=== PATIENT | male | born 1955 | race African-American/Black ===

== ENCOUNTER 2020-01-26 17:33 | Inpatient (IN) | payer OTHER, SELFPAY ==
[~2020-01-26 17:33] MED LIST: Iopamidol 370 76% 100 ML VIAL ONE
[2020-01-26] MEDS ORDERED: Ondansetron PF 4 MG/2 ML Vial ONE ×2 (18:09→23:12)
[2020-01-26 18:41] LABS: #Eosinphils 0.1 thou/uL (0.0-0.7); #Lymphocytes 1.8 thou/uL (1.20-3.40); #Monocytes 0.5 thou/uL (0.11-0.59); #Neutrophils 3.4 thou/uL (1.40-6.50); %Basophils 0.4 % (0.0-1.0); %Eosinophils 0.9 % (0.0-10.0); %Lymphocytes 31.6 % (21.0-51.0); %Monocytes 8.6 % (0.0-10.0); %Neutrophils 58.5 % (42.0-75.0); Hemoglobin 6.4 g/dL (14.0-18.0); Mean Corpuscular HGB CONC 31.2 g/dL (32.0-36.0); Mean Corpuscular Volume 77.2 fL (78.0-98.0); Mean Platelet Volume 9.3 fL (7.4-10.4); Platelet Count 219 thou/uL (130-400); RBC Distribution Width 20.3 % (11.5-14.5); Red Blood Cell (RBC) Count 2.66 mill/uL (4.70-6.10); White Blood Cell (WBC) Count 5.8 thou/uL (4.8-10.8)
[2020-01-26 18:46] LABS: ALT (SGPT) 18 U/L (8-55); AST (SGOT) 46 U/L (5-34); Albumin 4.1 g/dL (3.4-4.8); Alkaline Phosphatase 137 U/L (40-110); Anion Gap 17 mmol/L (10-20); BUN (Urea Nitrogen) 14 mg/dL (8.4-25.7); Bilirubin, Total 0.4 mg/dL (0.2-1.2); Calc. Creatinine Clearance 0 mL/min (70-130); Calcium 9.6 mg/dL (7.8-10.44); Carbon Dioxide 25 mmol/L (23-31); Chloride 101 mmol/L (98-107); Estimated GFR-MDRD Greater than 90; Globulin 3.6 g/dL (2.4-3.5); Glucose 110 mg/dL (80-115); Potassium 3.8 mmol/L (3.5-5.1); Protein, Total 7.7 g/dL (5.8-8.1); Sodium 139 mmol/L (136-145)
--- NOTE | 2020-01-26 20:05 | CT ---
EXAM: CT ABDOMEN AND PELVIS HISTORY: Low hemoglobin. Right hip pain radiating down the right leg. Nausea. COMPARISON: 04/23/2016 Procedure: Multiple contiguous axial images were obtained and a CT of the abdomen and pelvis with IV contrast. C oronal reformats were performed. FINDINGS: Lower Chest: Atelectasis in the left and right lower lobes suspected Vessels: Normal caliber aorta. No periaortic fat stranding Heart: Normal heart size. Small amount of anterior pericardial fluid. Abdomen: Portal vein:Patent Gallbladder: Contracted, likely due to a nonfasting state Liver: within normal limits. Pancreas: within normal limits. Spleen: within normal limits. Adrenals: within normal limits. Kidneys: Symmetric enhancement. Bilaterally no obstructive uropathy. Cyst in the left and right renal cortex are noted, measuring 2.5 and 1.6 cm respectively. Peritoneum: No ascites or free air, no fluid collection. Bowel: Limited evaluation due to the lack of oral contrast administration. No evidence of bowel obstr uction. Ileocecal junction is unremarkable. Normal caliber appendix. Scattered fecal material in a nondistended, nondilated colon. Diverticulosis, without evidence of diverticulitis. Mesentery and Retroperitoneum: No evidence of mesenteric lymphadenopathy. Enlarged aortocaval lymph n ode measures 1.4 x 0.5 cm. Abdominal Wall: within normal limits. Pelvis: Reproductive Organs: Reproductive organs are unremarkable. Pelvis: No free air, free fluid or mass. There is mild lymphadenopathy in the left or right hemipelvi s. Batterboard Setter right hemipelvic lymph node measures 2.1 x 1.9 cm. Bladder: within normal limits. Additional findings: There is mild induration of the right inguinal subcutaneous fat. Enlarged right inguinal lymph node measures 1.7 x 1.4 cm. Bones: There is demineralization with areas of patchy sclerosis involving the visualized spine, sacru m and bony pelvis. These findings have progressed since the previous examination. Possibility of multifocal osseous metastases/malignancy cannot be excluded. Correlate with patient's past medical hi story. Vacuum disc phenomenon at L4-L5. Bilateral pars defects at L4. Sacralization of L5 is redemonstrated. IMPRESSION: 1. Inflammatory changes involving the right groin with evidence of lymphadenopathy. Additional enlarg ed retroperitoneal and pelvic lymph nodes are noted. 2. Extensive sclerosis and lucency throughout the visualized osseous structures worrisome for progres sheron of metastases/malignancy compared to the previous CT. Correlate with patient's past medical history. Results study discussed with Estephania Richard 01/26/2020 at 8:03 PM Code CR Transcribed Date/Time: 01/26/2020 8:30 PM
--- NOTE | 2020-01-26 21:50 | PDOC.EVN ---
Event Note - Event Note Event Note: [id number] HP
[2020-01-26] MEDS ORDERED: Morphine 4 MG/ML VIAL ONE (22:11)
[2020-01-26 23:31] LABS: SARS-CoV-2 NAA Rapid Test Not Detected (NotDetected)
[2020-01-27 00:37] VITALS: BMI 24.0
[2020-01-27] MEDS ORDERED: Ondansetron ODT 4 MG TAB SL PRN (01:27)
[2020-01-27] MEDS ORDERED: Ondansetron PF 4 MG/2 ML Vial IVP PRN (01:27)
[2020-01-27] MEDS ORDERED: Acetaminophen 325 MG TAB PO PRN (01:27)
--- NOTE | 2020-01-27 01:43 | HP ---
CHIEF COMPLAINT: Abnormal labs. HISTORY OF PRESENT ILLNESS: Mr. Ye is a 64-year-old male with past medical history of metastatic prostate cancer, presents to the emergency room for evaluation of low hemoglobin. The patient reports that he was seen at [facility] today for right hip pain with radiation down to the leg. He reports they did labs and urinalysis and discharged home with pain medications, but called him later to tell him he needed to run to the hospital because of his blood counts were very low. He denies history of anemia. He feels weak, tired, short of breath with exertion. He does report history of vomiting and constipation, but denies noticing blood in his vomit or stool. He denies black tarry stool. He has been feeling nauseous at the current time and he believes it is from tramadol that he took earlier today. Workup in the emergency room, the patient was found to be anemic with hemoglobin of 6.4. MCV 77. Type and cross sent. Packed RBC transfusion ordered by ED. The patient is being admitted to hospital for further management. PAST MEDICAL HISTORY: Metastatic prostate cancer, stage IV. PAST SURGICAL HISTORY: None reported. SOCIAL HISTORY: Denies alcohol drinking. Denies drug use. Denies smoking. FAMILY HISTORY: Reviewed and noncontributory. HOME MEDICATIONS: Please see home medication reconciliation form for updated medications. ALLERGIES: NO KNOWN ALLERGIES. REVIEW OF SYSTEMS: Review of 14 systems negative except what is mentioned in history of present illness. PHYSICAL EXAMINATION: GENERAL: The patient is awake, alert, in mild distress. VITAL SIGNS: Blood pressure 137/81, pulse 85, respiratory rate is 20, temperature is 98.1, oxygen saturation 98% on room air. HEAD AND NECK: Normocephalic, atraumatic. Neck is supple. No JVD. CHEST: Fair bilateral air entry. HEART: S1, S2. Regular. ABDOMEN: Soft, nontender. Bowel sounds present. RECTAL: Done by ED. Please refer to ED note for details. NEUROLOGIC: Awake, alert, oriented x3. MUSCULOSKELETAL: Right hip tenderness. PSYCH: Unable to assess. EXTREMITIES: No clubbing or cyanosis. There is right hip tenderness. LABORATORY DATA: Hemoglobin 6.4, MCV 77, AST 46, alkaline phosphatase 137. CT abdomen and pelvis showed lymphadenopathy? Inflammatory extensive sclerosis and lucency throughout the visualized osseous structures worrisome for progression of metastasis/malignancy compared to prior CTs. ASSESSMENT: 1. Symptomatic anemia. 2. Metastatic prostate cancer. 3. Right hip pain. PLAN: 1. Admit. 2. Type and cross and transfuse packed RBCs. 3. Check urinalysis for occult blood. 4. Reconcile home medications. 5. Deep venous thrombosis prophylaxis as appropriate. 6. Expected length of stay, 1 midnight if patient is stable and further workup negative. Job ID: [id number]
[2020-01-27 05:40] LABS: Bilirubin Negative (Negative); Blood, Urine Negative (Negative); Clarity Clear (Clear); Glucose, Urine (Dipstick) Normal (Negative); Ketone, Urine Negative (Negative); Leukocyte Negative Leu/uL (Negative); Nitrite Negative (Negative); Protein, Urine (Dipstick) Negative (Neg-Trace); Urobilinogen Normal mg/dL (Less than 2); pH, Urine 6.5 (5.0-9.0)
[2020-01-27 06:29] LABS: #Eosinphils 0.1 thou/uL (0.0-0.7); #Lymphocytes 1.7 thou/uL (1.20-3.40); #Monocytes 0.5 thou/uL (0.11-0.59); #Neutrophils 2.9 thou/uL (1.40-6.50); %Basophils 0.4 % (0.0-1.0); %Eosinophils 1.1 % (0.0-10.0); %Lymphocytes 32.3 % (21.0-51.0); %Monocytes 9.8 % (0.0-10.0); %Neutrophils 56.4 % (42.0-75.0); Hemoglobin 7.7 g/dL (14.0-18.0); Mean Corpuscular HGB CONC 31.1 g/dL (32.0-36.0); Mean Corpuscular Hemoglobin 24.8 pg (27.0-31.0); Mean Corpuscular Volume 79.8 fL (78.0-98.0); Mean Platelet Volume 9.4 fL (7.4-10.4); Platelet Count 190 thou/uL (130-400); RBC Distribution Width 19.1 % (11.5-14.5); White Blood Cell (WBC) Count 5.2 thou/uL (4.8-10.8)
[2020-01-27 06:41] LABS: Anion Gap 14 mmol/L (10-20); BUN (Urea Nitrogen) 12 mg/dL (8.4-25.7); Calc. Creatinine Clearance 107 mL/min (70-130); Calcium 9.2 mg/dL (7.8-10.44); Carbon Dioxide 25 mmol/L (23-31); Chloride 100 mmol/L (98-107); Estimated GFR-MDRD Greater than 90; Glucose 102 mg/dL (80-115); Potassium 3.9 mmol/L (3.5-5.1); Sodium 135 mmol/L (136-145)
[2020-01-27] MEDS ORDERED: Morphine 4 MG/ML VIAL SLOW IVP PRN (12:03)
[2020-01-27] MEDS: Lidocaine 5% Patch TD SCH (12:32)
[2020-01-27] MEDS: HYDROcodone/Acetaminophen 5/325 mg Tablet PO PRN ×2 (12:32→18:55)
--- NOTE | 2020-01-27 14:13 | PDOC.PALCO ---
Palliative Care Consult - Consult Details Requesting Physician: Dr Bales Reason for Consult: symptom management - Pertinent HPI 64 year old male that resides in a private home setting. Reports history of metastatic prostate cancer. He was seen at [facility] 01/26/2020 for evaluation of right hip pain that radiates down the leg, no relieving factors. States he was discharged with pain medication, however was called at home secondary to altered CBC and advised to return to the emergency room for evaluation. Presented to [facility]. Denied blood in any emesis or note of dark or bloody stool. Admitted to Oncology for further evaluation and medical management. Utilizes cane for ambulation. Reports recent increase in shortness of breath with minimal activity. - Pertinent PMH Metastatic prostate cancer stage IV - Social History Smoking Status: Never smoker Smoking: no tobacco exposure Alcohol Use: none Drug Use History: none Living Situation: independent, with family/parents - Medications MAR Reviewed: Yes - Allergies Allergies/Adverse Reactions: Allergies Allergy/AdvReac Type Severity Reaction Status Date / Time No Known Drug Allergies Allergy Verified 01/27/20 01:47 - Subjective O2 via NC. States pain is a 6-7 out of 10. - ROS Constitutional: alert, malaise ENT: other (Denies difficulity swallowing, congestion) Respiratory: shortness of breath with extertion Cardiology: palpitations Gastrointestinal: other (Recent nausea related to new pain mediciaon, otherwise negative) Genitourinary: other (Negative for hematuria) Musculoskeletal: leg pain, other (right hip pain) Neurological: other (Denies confusion, dizziness, numbness) Skin: other (denies rash or puritis) Psychological: other (Denies mood changes or anxiety) - Objective Vital Signs: Vital Signs - Most Recent Temp Pulse Resp BP Pulse Ox 98.6 F 84 18 135/75 96 01/27/20 12:00 01/27/20 12:00 01/27/20 12:00 01/27/20 12:01/27/20 12:00 Palliative Performance Scale: 60 - Advance Directives Medical Power of Block Cuber: To complete - Physical Exam Constitutional: NAD HEENT: EOMI, sclera anicteric Respiratory: no wheezing, unlabored breathing Cardiovascular: RRR Gastrointestinal: continent, soft, positive bowel sounds Genitourinary: continent Musculoskeletal: no cyanosis, no clubbing Deviation from normal: Tenderness ot right hip Neurology: moves all 4 limbs Skin: no lesions, no rash Psychiatric: A&O x 3, flat affect - Problem List (1) Symptomatic anemia Code(s): D64.9 - ANEMIA, UNSPECIFIED Current Visit: Yes Status: Acute (2) Palliative care encounter Code(s): Z51.5 - ENCOUNTER FOR PALLIATIVE CARE Current Visit: Yes Status: Acute (3) Pain in right hip Code(s): M25.551 - PAIN IN RIGHT HIP Current Visit: Yes Status: Acute (4) Prostate cancer metastatic to bone Code(s): C61 - MALIGNANT NEOPLASM OF PROSTATE; C79.51 - SECONDARY MALIGNANT NEOPLASM OF BONE Current Visit: Yes Status: Acute - Plan/Recommendations Plan: Visited with Mr Ye, States currently his pain is improved, but still present. Denies recent BM. Will add dexamethasone, Teaching that it may take a dose or two to become effective in diminishing right hip pain Teaching to use PRN Morphine if initial dose of hydrocodone is not effective in mitigating right hip pain. Add Miralax for prevention of constipation [50] minutes spent on this encounter with >50% of the time in counseling and coordination of care. Thank you for this very appropriate consult.
--- NOTE | 2020-01-27 14:39 | PDOC.FMACP ---
Advance Care Planning - Problem (1) Symptomatic anemia Status: Acute Code(s): D64.9 - ANEMIA, UNSPECIFIED (2) Palliative care encounter Status: Acute Code(s): Z51.5 - ENCOUNTER FOR PALLIATIVE CARE (3) Pain in right hip Status: Acute Code(s): M25.551 - PAIN IN RIGHT HIP (4) Prostate cancer metastatic to bone Status: Acute Code(s): C61 - MALIGNANT NEOPLASM OF PROSTATE; C79.51 - SECONDARY MALIGNANT NEOPLASM OF BONE - Note Participants: patient, palliative care Summary: Introduced Advanced Care Planning. The diagnosis, prognosis and goals of care were discussed. Appropriate forms and documentation to accomplish the goals of care were discussed. All questions were answered. Mr Ye is agreeable to complete a MPOA, discussed Directive to Physician, he will review. Continue currently with all aggressive measures. The Palliative Care Team will assist with completion of any outstanding forms as identified. Time Spent (mins): 15
[2020-01-27] MEDS: Gabapentin 300 MG CAP PO SCH ×2 (15:20→20:47)
--- NOTE | 2020-01-27 17:01 | PDOC.HOSPP ---
- Subjective Subjective: Patient was seen examined at bedside. Patient complaining of hip pain. I have reviewed the CT scan. Patient apparently had histories of prostate cancer, follow-up with Dr. Omer, urology at outpatient for Lupron injection, until about May 2019, patient had lost his insurance coverage and had not been followed up since then. I have reached out to Dr. Omer. He did recommend check his PSA, and testosterone level. He also recommends oncology input and possible radiation therapy for palliative purposes. Consults have been placed. We will continue with conservative management, pain control. He will see patient on Thursday if patient is still in the hospital. - Objective Vital Signs & Weight: Vital Signs (12 hours) Temp Pulse Resp BP Pulse Ox 01/27/20 16:00 98.7 F 86 18 130/72 97 01/27/20 12:00 98.6 F 84 18 135/75 96 01/27/20 08:00 98.9 F 97 20 146/73 H 96 Weight Admit Weight 172 lb 2.896 oz Weight 172 lb 2.896 oz I&O: 01/26/20 01/27/20 01/28/20 06:59 06:59 06:59 Intake Total 336 Output Total 1550 Balance -1214 Result Diagrams: 01/27/20 06:00 01/27/20 06:00 Hospitalist ROS - Medication Medications: Active Medications Generic Name Dose Route Start Last Admin Trade Name Freq PRN Reason Stop Dose Admin Hydrocodone Bitart/Acetaminophen 1 tab 01/27/20 12:03 01/27/20 12:32 [place] 5/325 PO 1 tab Q4H PRN Administration Moderate to Severe Pain (6-10) Gabapentin 300 mg 01/27/20 15:00 01/27/20 15:20 Neurontin PO 300 mg TID LOUANN Administration Lidocaine 1 patch 01/27/20 13:00 01/27/20 12:32 Lidoderm 5% Patch TD 1 patch Q24HR LOUANN Administration Sodium Chloride 10 ml 01/27/20 09:00 01/27/20 09:34 Flush - Normal Saline IVF Not Given Q12HR LOUANN - Exam General Appearance: NAD, awake alert, ill appearing Eye: PERRL, anicteric sclera ENT: normocephalic atraumatic Neck: supple, symmetric, no JVD Heart: RRR, no murmur, no gallops, no rubs, normal peripheral pulses Respiratory: CTAB, no wheezes, no rales, no ronchi Gastrointestinal: soft, non-tender, non-distended Extremities: no cyanosis, no clubbing, no edema Skin: normal turgor, no lesions Neurological: cranial nerve grossly intact, no new deficit, facial droop, hemiplegia Musculoskeletal: normal tone, normal strength Psychiatric: normal affect, normal behavior, A&O x 3, oriented to time Hosp A/P - Plan Assessment and plan: #Pain due to malignancy including low back and hip #Metastatic prostate cancer #Symptomatic anemia due to chronic illness with status post blood transfusion 01/27/2020 I have reviewed his abdomen and pelvic CT scan, it appears to be progressions of his metastatic disease. We will consult medical oncology for further recommendation, patient may be benefit from palliative radiation therapy. Palliative care consult to help with symptomatic management as well as goals of care. I had a chance to reach out to Dr. Omer, his urologist. Recommend to check PSA level as well as testosterone level. Prognosis is poor given resistance to hormone therapy. He will see patient on Thursday if pt still in the hospital. If testosterone is significantly elevated, orchiectomy may be considered. Adjust pain regimen, monitor and adjust as needed. Labs in AM
[2020-01-27] MEDS ORDERED: Prevnar 13-Val Conj/PF 0.5 ML SYRINGE IM ONE (21:00)
--- NOTE | 2020-01-27 21:23 | CON ---
DATE OF CONSULTATION: REASON FOR CONSULTATION: Prostate cancer and anemia. Please note that the patient has a prior medical record different from his current one that is [id number]. HISTORY OF PRESENT ILLNESS: Mr. Ye is a 64-year-old gentleman, who was diagnosed with metastatic prostate cancer in April 2016. He presented in 10/2015 with pain in his right leg, radiated from his back down to his groin and down his leg. It started 3 months prior to this visit. A CT of the abdomen and pelvis done in 2015 found retroperitoneal lymphadenopathy, sclerotic lesions in the bones, spines, ribs. His PSA was 809 at diagnosis. He was treated by Dr. Omer with Lupron injections for the past several years. His last injection was in May of this year. He lost his job in September and lost his insurance as well. Since that time, he has been having worsening right leg pain. He presented to the emergency room at [facility] yesterday. He was noted to have a hemoglobin of 6. He had already been sent home, but was instructed to return to the nearest ER. He came here, where he was transfused 2 units of packed RBCs with improvement of his hemoglobin to 7.7. Repeat CT scan in the ER yesterday showed inflammatory changes involving the right groin with evidence of lymphadenopathy. There were additionally enlarged retroperitoneal and pelvic lymph nodes. He had extensive sclerosis and lucency throughout the bones. The patient states he has never had any chemotherapy. The only treatment he has had is Lupron injections. He had a negative stool guaiac in the ER. He denies any melena or hematochezia. He states he has lost 20 pounds since September due to poor appetite. No numbness or tingling in his lower extremities. PAST MEDICAL HISTORY: Metastatic prostate cancer diagnosed in 2015 and treated with Lupron. PAST SURGICAL HISTORY: None. ALLERGIES: NO KNOWN DRUG ALLERGIES. HOME MEDICATIONS: Advil. FAMILY HISTORY: Grandma had colon cancer and breast cancer. No known history of prostate cancer. SOCIAL HISTORY: A 40 plus pack-year history of smoking. He says he quit several years ago. Occasional beer. Past history of cocaine and marijuana use. REVIEW OF SYSTEMS: A 10-point review of systems is negative except for noted in HPI. PHYSICAL EXAMINATION: VITAL SIGNS: Temperature is 98.6, pulse is 84, respiratory rate 18, BP is 135/75. He is 96% on nasal cannula. GENERAL: A well-developed, well-nourished male, no acute distress. HEENT: Normocephalic, atraumatic. Pupils are equal and reactive to light. NECK: Supple. CV: Regular rate and rhythm. LUNGS: Clear. ABDOMEN: Soft and nontender. Bowel sounds are positive. EXTREMITIES: No clubbing or cyanosis. SKIN: No rash. LYMPH: He has a 2 cm right inguinal lymphadenopathy. No other lymphadenopathy palpated. NEUROLOGICAL: Nonfocal. PERTINENT LABORATORY DATA AND X-RAYS: Current WBCs are 5.4, hemoglobin 7.7, hematocrit 24.7, platelet count 190,000. He has 56% neutrophils, 32% lymphocytes. Sodium 135, potassium 3.9, chloride 100, CO2 is 25, BUN is 12, creatinine 0.78, calcium 9.2, bilirubin is 0.4, AST is 46, ALT is 18, alkaline phosphatase is 137. Serum total protein is 7.7, albumin 4.1, globulin 3.6. Urine is negative. COVID-19 test is negative. ASSESSMENT: 1. Metastatic prostate cancer with likely progression. 2. Severe anemia. DISCUSSION: The patient has not had a Lupron injection since May 2019. Based on his lymphadenopathy and sclerosis in his bones, his prostate cancer has likely progressed. I will check a PSA. His anemia may be from bone marrow suppression due to prostate cancer. However, GI bleed should be ruled out as well. We will get a bone scan to determine extent of disease. He would be a candidate for Taxotere chemotherapy or oral Zytiga or Xtandi. He unfortunately lost his insurance in September and will need financial assistance. We will discuss with director case and our egg caser at our clinic. Thank you for the consult. We will follow along with his hospitalization. Job ID: [id number]
[2020-01-28] MEDS: Lidocaine Patch Removal 1 EACH TOP SCH (00:39)
[2020-01-28] MEDS: HYDROcodone/Acetaminophen 5/325 mg Tablet PO PRN ×3 (02:59→20:06)
[2020-01-28 04:41] LABS: Reticulocyte Count 1.5 % (0.5-1.5)
[2020-01-28 04:47] LABS: #Lymphocytes 1.4 thou/uL (1.20-3.40); #Monocytes 0.6 thou/uL (0.11-0.59); %Basophils 0.8 % (0.0-1.0); %Lymphocytes 27.8 % (21.0-51.0); %Monocytes 11.3 % (0.0-10.0); %Neutrophils 59.1 % (42.0-75.0); Hemoglobin 7.7 g/dL (14.0-18.0); Mean Corpuscular HGB CONC 30.7 g/dL (32.0-36.0); Mean Corpuscular Hemoglobin 24.3 pg (27.0-31.0); Mean Corpuscular Volume 79.1 fL (78.0-98.0); Mean Platelet Volume 9.9 fL (7.4-10.4); Platelet Count 206 thou/uL (130-400); RBC Distribution Width 19.5 % (11.5-14.5); Red Blood Cell (RBC) Count 3.16 mill/uL (4.70-6.10); White Blood Cell (WBC) Count 5.1 thou/uL (4.8-10.8)
[2020-01-28 05:07] LABS: Albumin (w/Testosterone Panel) 3.5 g/dL
[2020-01-28 05:13] LABS: Anion Gap 15 mmol/L (10-20); BUN (Urea Nitrogen) 15 mg/dL (8.4-25.7); Calc. Creatinine Clearance 107 mL/min (70-130); Calcium 8.7 mg/dL (7.8-10.44); Carbon Dioxide 23 mmol/L (23-31); Chloride 100 mmol/L (98-107); Estimated GFR-MDRD Greater than 90; Glucose 101 mg/dL (80-115); Iron 26 ug/dL (65-175); Iron Binding Capacity, Total 179 mcg/dL (261-462); Potassium 3.9 mmol/L (3.5-5.1); Sodium 134 mmol/L (136-145)
[2020-01-28 05:53] LABS: Sex Hormone Binding Globulin 54.7 nmol/L (11-78); Testosterone, Free 3.6 pg/mL (47-244); Testosterone, Total 26.6 ng/dL (221-716)
[2020-01-28 05:58] LABS: PSA-Asymptomatic (SCREENING) 96.97 ng/mL (0-4.0)
[2020-01-28 06:29] LABS: Ferritin 6749.17 ng/mL (22-322)
[2020-01-28] MEDS: Dexamethasone 4 MG TAB PO SCH (08:19)
[2020-01-28] MEDS: Gabapentin 300 MG CAP PO SCH ×3 (08:20→20:06)
[2020-01-28] MEDS: Polyethylene Glycol 3350 17 GM Packet PO SCH (08:22)
[2020-01-28] MEDS ORDERED: Prevnar 13-Val Conj/PF 0.5 ML SYRINGE IM ONE (09:00)
[2020-01-28] MEDS: Cyanocobalamin (Vitamin B-12) 1,000 MCG TAB PO SCH (10:05)
--- NOTE | 2020-01-28 12:54 | PDOC.MOPN ---
Interval History: pain controlled with meds. Bone scan today. - Vital Signs Vital Signs: Vital Signs (12 hours) Temp Pulse Resp BP BP BP Pulse Ox 01/28/20 11:56 98.8 F 90 16 138/77 91 L 01/28/20 08:06 99.2 F 105 H 18 155/83 H 95 01/28/20 08:00 99.2 F 105 H 18 155/83 H 95 01/28/20 03:00 100.5 F H 96 20 132/66 96 Weight Admit Weight 172 lb 2.896 oz Weight 172 lb 2.896 oz - Physical Exam General: Alert, Oriented x3, No acute distress HEENT: Atraumatic, PERRLA, EOMI, Mucous membr. moist/pink Lungs: Clear to auscultation, Normal air movement Cardiovascular: Regular rate, Normal S1, Normal S2, No murmurs, Gallops, Rubs Abdomen: Normal bowel sounds, Soft, No tenderness, No hepatospenomegaly, No masses Extremities: Other (right leg pain, rt groin lymphadenopathy) Neurological: Normal speech - Labs Result Diagrams: 01/28/20 03:47 01/28/20 03:47 Lab results: Laboratory Results - last 24 hr 01/28/20 03:47: Testosterone Level 26.6 L, Free Testosterone 3.6 L, Calc Bioavail Testoster 7.0, Sex Hormone Bind Glob 54.7 01/28/20 03:47: Retic Count 1.5, Immature Retic Fraction 0.460 H 01/28/20 03:47: WBC 5.1, RBC 3.16 L, Hgb 7.7 L, Hct 25.0 L, MCV 79.1, MCH 24.3 L , MCHC 30.7 L, RDW 19.5 H, Plt Count 206, MPV 9.9, Neutrophils % 59.1, Lymphocytes % 27.8, Monocytes % 11.3 H, Eosinophils % 1.0, Basophils % 0.8, Neutrophils # 3.0, Lymphocytes # 1.4, Monocytes # 0.6 H, Eosinophils # 0.0, Basophils # 0.0 01/28/20 03:47: Folate 6.70 L 01/28/20 03:47: Ferritin 6749.17 H, Prostate Specific Ag 96.97 H, Vitamin B12 267 01/28/20 03:47: Lactate Dehydrogenase 1384 H 01/28/20 03:47: Sodium 134 L, Potassium 3.9, Chloride 100, Carbon Dioxide 23, Anion Gap 15, BUN 15, Creatinine 0.78, Estimated GFR (MDRD) Greater than 90, Glucose 101, Calcium 8.7, Iron 26 L, TIBC 179 L Status: lab reviewed by me A/P - Problem (1) Prostate cancer metastatic to bone Current Visit: Yes Code(s): C61 - MALIGNANT NEOPLASM OF PROSTATE; C79.51 - SECONDARY MALIGNANT NEOPLASM OF BONE Status: Acute (2) Symptomatic anemia Current Visit: Yes Code(s): D64.9 - ANEMIA, UNSPECIFIED Status: Acute - Plan Plan: 1. NM bone scan today 2, PSA 96.97 3. ok to al home after scan 4. follow-up clinic to discuss treatment options, we will call with appt
--- NOTE | 2020-01-28 14:09 | NM ---
WHOLE BODY BONE SCAN: 01/28/20 HISTORY: Prostate cancer, stage IV. RADIOPHARMACEUTICAL: 28.3 millicuries technetium 99m - MDP injected intravenously. COMPARISON: None. CORRELATION: CT abdomen and pelvis of 01/26/20. FINDINGS: There is increased tracer localization in the axial and proximal appendicular skeleton consistent wit h extensive metastatic disease. Tracer excretions of both kidneys are within normal limits. There is asymmetrically increased uptake in the right iliac bone, superior pubic ramus and acetabulum and incr eased uptake in the left supra-acetabular region. Increased uptake in the shoulders is consistent with degenerative change. Tracer excretion to the kid neys is within normal limits. IMPRESSION: Widespread osseous metastatic disease. POS: OFF
[2020-01-28] MEDS: Lidocaine 5% Patch TD SCH (14:29)
[2020-01-29] MEDS: Lidocaine Patch Removal 1 EACH TOP SCH (00:04)
[2020-01-29] MEDS: HYDROcodone/Acetaminophen 5/325 mg Tablet PO PRN ×3 (04:07→20:44)
[2020-01-29] MEDS: Acetaminophen 325 MG TAB PO PRN (04:07)
[2020-01-29 06:08] LABS: Bacteria/HPF None Seen HPF (None Seen); Bilirubin Negative (Negative); Blood, Urine Trace (Negative); Clarity Clear (Clear); Glucose, Urine (Dipstick) Normal (Negative); Ketone, Urine Negative (Negative); Leukocyte Negative Leu/uL (Negative); Mucous/LPF 2+ LPF (<2+); Nitrite Negative (Negative); Protein, Urine (Dipstick) 30 mg/dL (Neg-Trace); RBC/HPF 0-3 HPF (0-3); Specific Gravity, Urine 1.028 (1.002-1.036); Squamous Epithelial None Seen HPF (0-3); Urobilinogen Normal mg/dL (Less than 2); WBC/HPF 0-3 HPF (0-3); pH, Urine 5.5 (5.0-9.0)
--- NOTE | 2020-01-29 07:23 | PDOC.HOSPP ---
- Subjective Encounter Date: 01/28/20 Encounter Time: 09:00 Subjective: pt up in bed complains of pain to his right hip area. - Objective Vital Signs & Weight: Vital Signs (12 hours) Temp Pulse Resp BP Pulse Ox 01/29/20 05:10 100.4 F H 01/29/20 04:00 102.2 F H 01/28/20 23:52 99.6 F 92 18 141/75 H 93 L 01/28/20 20:10 94 L 01/28/20 20:00 98.5 F 97 18 152/76 H 94 L Weight Admit Weight 172 lb 2.896 oz Weight 172 lb 2.896 oz I&O: 01/28/20 01/29/20 01/30/20 06:59 06:59 06:59 Intake Total 1000 480 Output Total 400 Balance 1000 80 Result Diagrams: 01/28/20 03:47 01/28/20 03:47 Hospitalist ROS - Review of Systems Cardiovascular: denies: chest pain, palpitations, orthopnea, paroxysmal noc. dyspnea, edema, light headedness, other Gastrointestinal: denies: nausea, vomiting, abdominal pain, diarrhea, constipation, melena, hematochezia, other Musculoskeletal: reports: other - Medication Medications: Active Medications Generic Name Dose Route Start Last Admin Trade Name Freq PRN Reason Stop Dose Admin Acetaminophen 650 mg 01/26/20 21:09 01/29/20 04:07 Tylenol PO 650 mg Q4H PRN Administration Headache/Fever/Mild Pain (1-3) Hydrocodone Bitart/Acetaminophen 1 tab 01/27/20 12:03 01/29/20 04:07 [place] 5/325 PO 1 tab Q4H PRN Administration Moderate to Severe Pain (6-10) Cyanocobalamin 1,000 mcg 01/28/20 09:00 01/28/20 10:05 Vitamin B-12 PO 1,000 mcg DAILY LOUANN Administration Dexamethasone 4 mg 01/28/20 08:00 01/28/20 08:19 Decadron PO 4 mg QAM-WM LOUANN Administration Gabapentin 300 mg 01/27/20 15:00 01/28/20 20:06 Neurontin PO 300 mg TID LOUANN Administration Lidocaine 1 patch 01/27/20 13:00 01/28/20 14:29 Lidoderm 5% Patch TD 1 patch Q24HR LOUANN Administration Miscellaneous Medication 1 each 01/28/20 01:00 01/29/20 00:04 Lidocaine Patch Removal TOP Not Given 0100 [facility] Morphine Sulfate 4 mg 01/27/20 12:03 01/28/20 10:10 Morphine SLOW IVP 4 mg Q4H PRN Administration Moderate to Severe Pain (6-10) Polyethylene Glycol 17 gm 01/28/20 09:00 01/28/20 08:22 Miralax PO 17 gm DAILY LOUANN Administration Sodium Chloride 10 ml 01/27/20 09:00 01/28/20 20:06 Flush - Normal Saline IVF 10 ml Q12HR LOUANN Administration - Exam Heart: negative: RRR, no murmur, no gallops, no rubs, normal peripheral pulses, irregular, diminshed peripheral pulses, murmur present, II/IV, III/IV Respiratory: negative: CTAB, no wheezes, no rales, no ronchi, normal chest expansion, no tachypnea, normal percussion, rales, rhonchi, tachypneic, wheezes Gastrointestinal: negative: soft, non-tender, non-distended, normal bowel sounds , no palpable masses, no hepatomegaly, no splenomegaly, no bruit, no guarding, no rigidity, tender to palpation, distended, diminished bowl sounds, voluntary guarding Extremities: negative: no cyanosis, no clubbing, no edema, 1+ LE edema, 2+ LE edema, clubbing Musculoskeletal - other findings: weakness to right lower ext Hosp A/P - Plan #Pain due to malignancy including low back and hip #Metastatic prostate cancer #Symptomatic anemia due to chronic illness with status post blood transfusion 01/27/2020 I have reviewed his abdomen and pelvic CT scan, it appears to be progressions of his metastatic disease. We will consult medical oncology for further recommendation, patient may be benefit from palliative radiation therapy. Palliative care consult to help with symptomatic management as well as goals of care. I had a chance to reach out to Dr. Omer, his urologist. Recommend to check PSA level as well as testosterone level. Prognosis is poor given resistance to hormone therapy. He will see patient on Thursday if pt still in the hospital. If testosterone is significantly elevated, orchiectomy may be considered. Adjust pain regimen, monitor and adjust as needed. Labs in AM 01/27 pt still having significant amount of pain to his right hip. He is getting morphine. Bone scan to be done. will watch pt over for 24hr then discharge if stable and no iv pain meds given.
[2020-01-29] MEDS: Ferrous Sulfate 325 MG TAB PO SCH ×3 (08:02→16:50)
[2020-01-29] MEDS: Gabapentin 300 MG CAP PO SCH ×3 (08:02→20:39)
[2020-01-29] MEDS: Dexamethasone 4 MG TAB PO SCH (08:03)
[2020-01-29] MEDS: Docusate 100 MG CAP PO SCH ×2 (08:03→20:39)
[2020-01-29] MEDS: Cyanocobalamin (Vitamin B-12) 1,000 MCG TAB PO SCH (08:06)
[2020-01-29] MEDS: Polyethylene Glycol 3350 17 GM Packet PO SCH (08:07)
[2020-01-29 08:19] LABS: ALT (SGPT) 18 U/L (8-55); AST (SGOT) 39 U/L (5-34); Albumin 3.4 g/dL (3.4-4.8); Alkaline Phosphatase 135 U/L (40-110); Anion Gap 16 mmol/L (10-20); BUN (Urea Nitrogen) 17 mg/dL (8.4-25.7); Bilirubin, Total 0.4 mg/dL (0.2-1.2); Calc. Creatinine Clearance 110 mL/min (70-130); Calcium 8.8 mg/dL (7.8-10.44); Carbon Dioxide 24 mmol/L (23-31); Chloride 102 mmol/L (98-107); Estimated GFR-MDRD Greater than 90; Globulin 3.3 g/dL (2.4-3.5); Glucose 108 mg/dL (80-115); Potassium 3.8 mmol/L (3.5-5.1); Protein, Total 6.7 g/dL (5.8-8.1); Sodium 138 mmol/L (136-145)
[2020-01-29 08:24] LABS: Hemoglobin 7.7 g/dL (14.0-18.0); Mean Corpuscular HGB CONC 29.4 g/dL (32.0-36.0); Mean Corpuscular Hemoglobin 23.6 pg (27.0-31.0); Mean Corpuscular Volume 80.3 fL (78.0-98.0); Mean Platelet Volume 9.6 fL (7.4-10.4); Platelet Count 193 thou/uL (130-400); RBC Distribution Width 19.8 % (11.5-14.5); Red Blood Cell (RBC) Count 3.25 mill/uL (4.70-6.10); White Blood Cell (WBC) Count 5.5 thou/uL (4.8-10.8)
[2020-01-29 09:50] LABS: #Lymphocytes 1.6 thou/uL (1.20-3.40); #Monocytes 0.7 thou/uL (0.11-0.59); #Neutrophils 3.2 thou/uL (1.40-6.50); %Basophils 0.3 % (0.0-1.0); %Eosinophils 0.5 % (0.0-10.0); %Lymphocytes 28.8 % (21.0-51.0); %Monocytes 11.9 % (0.0-10.0); %Neutrophils 58.6 % (42.0-75.0); Anisocytosis SLIGHT = 6-15 cells (100X) (0-5/hpf); Hypochromia MODERATE=16-30 cells (100X) (0-5/hpf); MDiff Complete? YES; Microcytosis SLIGHT = 6-15 cells (100X) (0-5/hpf); Platelet Morphology Comment Appears Adequate; Polychromasia SLIGHT = 2-3 cells (100X) (0-2/hpf); Schistocytes SLIGHT = 2-5 cells (100X) (0-1/hpf); Target Cells SLIGHT = 2-5 cells (100X) (0-1/hpf); Tear Drops SLIGHT = 2-5 cells (100X) (0-1/hpf)
--- NOTE | 2020-01-29 11:09 | RAD ---
PORTABLE CHEST 1 VIEW: DATE: 01/29/2020. TIME: 4:35 AM. HISTORY: Fever. COMPARISON: 04/23/2016. FINDINGS: The heart size is normal. The aorta is tortuous with evidence of old granulomatous disease. No loba r consolidation, pneumothoraces, or large effusions are identified. POS: OFF
[2020-01-29] MEDS ORDERED: Piperacillin/Tazobactam 3.375 GM VIAL ONE (12:27)
[2020-01-29] MEDS: Piperacillin/Tazobactam 3.375 GM in Sodium Chloride 0.9% 100 ML IVPB SCH ×2 (13:17→17:28)
[2020-01-29] MEDS: Lidocaine 5% Patch TD SCH (13:19)
--- NOTE | 2020-01-29 15:25 | PDOC.HOSPP ---
- Subjective Encounter Date: 01/29/20 Encounter Time: 12:30 Subjective: pt up in bed complains of pain to his right groin. - Objective Vital Signs & Weight: Vital Signs (12 hours) Temp Pulse Resp BP Pulse Ox 01/29/20 08:00 100.1 F H 99 18 156/77 H 97 01/29/20 05:10 100.4 F H 01/29/20 04:00 102.2 F H Weight Admit Weight 172 lb 2.896 oz Weight 172 lb 2.896 oz I&O: 01/28/20 01/29/20 01/30/20 06:59 06:59 06:59 Intake Total 1000 480 Output Total 400 Balance 1000 80 Result Diagrams: 01/29/20 07:43 01/29/20 07:43 Hospitalist ROS - Review of Systems Cardiovascular: denies: chest pain, palpitations, orthopnea, paroxysmal noc. dyspnea, edema, light headedness, other Gastrointestinal: denies: nausea, vomiting, abdominal pain, diarrhea, constipation, melena, hematochezia, other Genitourinary: denies: dysuria, frequency, incontinence, hematuria, retention, other - Medication Medications: Active Medications Generic Name Dose Route Start Last Admin Trade Name Freq PRN Reason Stop Dose Admin Acetaminophen 650 mg 01/26/20 21:09 01/29/20 04:07 Tylenol PO 650 mg Q4H PRN Administration Headache/Fever/Mild Pain (1-3) Hydrocodone Bitart/Acetaminophen 1 tab 01/27/20 12:03 01/29/20 08:03 [place] 5/325 PO 1 tab Q4H PRN Administration Moderate to Severe Pain (6-10) Cyanocobalamin 1,000 mcg 01/28/20 09:00 01/29/20 08:06 Vitamin B-12 PO 1,000 mcg DAILY LOUANN Administration Dexamethasone 4 mg 01/28/20 08:00 01/29/20 08:03 Decadron PO 4 mg QAM-WM LOUANN Administration Docusate Sodium 100 mg 01/29/20 09:00 01/29/20 08:03 Colace PO 100 mg BID LOUANN Administration Ferrous Sulfate 325 mg 01/29/20 08:00 01/29/20 08:05 Feosol PO 325 mg BID-WM LOUANN Administration Gabapentin 300 mg 01/27/20 15:00 01/29/20 14:38 Neurontin PO 300 mg TID LOUANN Administration Piperacillin Sod/Tazobactam 100 mls @ 200 mls/hr 01/29/20 12:00 01/29/20 13: 17 Sod 3.375 gm/ Sodium Chloride IVPB 100 mls Q6HR LOUANN Administration Lidocaine 1 patch 01/27/20 13:00 01/29/20 13:19 Lidoderm 5% Patch TD 1 patch Q24HR LOUANN Administration Miscellaneous Medication 1 each 01/28/20 01:00 01/29/20 00:04 Lidocaine Patch Removal TOP Not Given 0100 [facility] Morphine Sulfate 4 mg 01/27/20 12:03 01/28/20 10:10 Morphine SLOW IVP 4 mg Q4H PRN Administration Moderate to Severe Pain (6-10) Polyethylene Glycol 17 gm 01/28/20 09:00 01/29/20 08:07 Miralax PO 17 gm DAILY LOUANN Administration Sodium Chloride 10 ml 01/27/20 09:00 01/29/20 08:07 Flush - Normal Saline IVF 10 ml Q12HR LOUANN Administration - Exam Neck: negative: supple, symmetric, no JVD, no thyromegaly, no lymphadenopathy, no carotid bruit, JVD Heart: negative: RRR, no murmur, no gallops, no rubs, normal peripheral pulses, irregular, diminshed peripheral pulses, murmur present, II/IV, III/IV Respiratory: negative: CTAB, no wheezes, no rales, no ronchi, normal chest expansion, no tachypnea, normal percussion, rales, rhonchi, tachypneic, wheezes Gastrointestinal: negative: soft, non-tender, non-distended, normal bowel sounds , no palpable masses, no hepatomegaly, no splenomegaly, no bruit, no guarding, no rigidity, tender to palpation, distended, diminished bowl sounds, voluntary guarding Extremities - other findings: right groin pain Hosp A/P - Plan #Pain due to malignancy including low back and hip #Metastatic prostate cancer #Symptomatic anemia due to chronic illness with status post blood transfusion 01/27/2020 I have reviewed his abdomen and pelvic CT scan, it appears to be progressions of his metastatic disease. We will consult medical oncology for further recommendation, patient may be benefit from palliative radiation therapy. Palliative care consult to help with symptomatic management as well as goals of care. I had a chance to reach out to Dr. Omer, his urologist. Recommend to check PSA level as well as testosterone level. Prognosis is poor given resistance to hormone therapy. He will see patient on Thursday if pt still in the hospital. If testosterone is significantly elevated, orchiectomy may be considered. Adjust pain regimen, monitor and adjust as needed. Labs in AM 01/27 pt still having significant amount of pain to his right hip. He is getting morphine. Bone scan to be done. will watch pt over for 24hr then discharge if stable and no iv pain meds given. 01/28 pt spiked a fever today. Ua/cxr normal. will start pt on abx. He has significant pain to his right groin area where his lymph node is inflamed and he also has significant metastatic bone lesions on his right pelvic area.
--- NOTE | 2020-01-29 19:27 | CON ---
DATE OF CONSULTATION: 01/29/2020 REASON FOR CONSULTATION: Prostate cancer. HISTORY OF PRESENT ILLNESS: Mr. Ye is a 64-year-old gentleman who was first seen by me in 04/2016. At that time, he presented with metastatic disease from prostate cancer. His PSA was 809. He had evidence on imaging of lymphadenopathy and bone metastases. He has been treated with hormone therapy since that time. He has had good results, and when last seen in 05/2019, he was pain free and was gaining weight. His PSA in 05/2019 was 8. Over the last several months, he has developed pain including pain in the right inguinal region with some radiation down the leg and also fatigue. He was evaluated in the emergency room and noted to have a hemoglobin in 6 and was contacted after he left the emergency room to return. He was brought to [facility]. He has now been here since 01/27/2020. He has received 2 units of blood. Evaluation here has demonstrated persistent metastatic prostate cancer with both lymphadenopathy and bone lesions, consistent with metastatic disease. His PSA on admission was 97. His last Lupron shot was in May, and testosterone levels at this time are still orchiectomy levels of 8 with a total testosterone of 26.6. He developed a fever this morning of 102.2. He has had weight loss. PAST MEDICAL HISTORY: Metastatic prostate cancer. PAST SURGICAL HISTORY: None. MEDICATIONS: Chronic medications of Lupron, last given in 05/2019. ALLERGIES: NO KNOWN DRUG ALLERGIES. SOCIAL HISTORY: He is not . Lives with his significant other. He is a nonsmoker. Denies excessive alcohol use. REVIEW OF SYSTEMS: RESPIRATORY: No shortness of breath. CARDIOVASCULAR: No chest pain or palpitations. GASTROINTESTINAL: Denies chronic constipation or diarrhea. GENITOURINARY: He is having no voiding issues. MUSCULOSKELETAL: He is having bone pain, particularly on the right side in the lower extremities. NEUROLOGIC: Denies any dizziness or stroke symptoms. PHYSICAL EXAMINATION: VITAL SIGNS: Temperature 100.1, blood pressure 156/77, pulse 99, respiratory rate 18, and O2 saturation 97% on room air. HEENT: Normocephalic and atraumatic. NECK: Supple without masses. CHEST: Clear to auscultation. CARDIOVASCULAR: No murmurs auscultated. ABDOMEN: Palpable lymphadenopathy in the right inguinal regional. EXTREMITIES: No edema. LABORATORY DATA`: Hemoglobin 7.7 (status post 2 units transfusion). PSA 96.97. Testosterone total 26.6, testosterone free 3.6. Creatinine 0.78. IMPRESSION: Mr. Ye is a 64-year-old gentleman who was diagnosed with metastatic prostate cancer in 04/2016, has been on systemic hormone therapy since that time and has been doing quite well until recently. His PSA has increased from a level of 8 in May to 97. He has symptomatic bone disease and anemia. Oncology consultation has been obtained and is appreciated. He will need to remain on hormone therapy, which may be somewhat difficult due to the Lupron shortage. At the current time, his testosterone levels are still orchiectomy level, but this will eventually change. If Lupron is not available, the only other option would be surgical castration with bilateral scrotal orchiectomy. I have discussed this with him. In the meantime, he should begin Casodex. RECOMMENDATIONS: 1. Begin Casodex. 2. Repeat testosterone testing, and either Lupron or surgical castration if levels began to rise significantly. Job ID: [id number]
[2020-01-30] MEDS: Piperacillin/Tazobactam 3.375 GM in Sodium Chloride 0.9% 100 ML IVPB SCH ×4 (00:57→17:43)
[2020-01-30] MEDS: HYDROcodone/Acetaminophen 5/325 mg Tablet PO PRN ×2 (01:00→20:30)
[2020-01-30] MEDS: Lidocaine Patch Removal 1 EACH TOP SCH (01:04)
[2020-01-30] MEDS: Ferrous Sulfate 325 MG TAB PO SCH ×2 (07:37→17:42)
[2020-01-30] MEDS: Dexamethasone 4 MG TAB PO SCH (07:37)
[2020-01-30] MEDS: Cyanocobalamin (Vitamin B-12) 1,000 MCG TAB PO SCH (07:38)
[2020-01-30] MEDS: Bicalutamide 50 MG TAB PO SCH (07:38)
[2020-01-30] MEDS: Docusate 100 MG CAP PO SCH ×2 (07:38→20:30)
[2020-01-30] MEDS: Polyethylene Glycol 3350 17 GM Packet PO SCH (07:39)
[2020-01-30] MEDS: Gabapentin 300 MG CAP PO SCH ×3 (07:39→20:30)
[2020-01-30] MEDS: Acetaminophen 325 MG TAB PO PRN (07:44)
[2020-01-30] MEDS: Lidocaine 5% Patch TD SCH (12:57)
[2020-01-30 17:15] LABS: Syphilis Antibody Nonreactive (Nonreactive); Syphilis Antibody Index 0.08 S/CO (<1.00 Non-Reactive)
[2020-01-30 17:16] LABS: HIV (1/2) Antibody/Antigen Non-Reactive (NonReactive); HIV 1/2 INDEX 0.07 S/CO (<1.00); Hep C IgG Ab Non-Reactive (NonReactive); Hep C Index 0.07 S/CO (0-0.79)
--- NOTE | 2020-01-30 17:37 | PDOC.HOSPP ---
- Subjective Encounter Date: 01/30/20 Encounter Time: 10:30 Subjective: pt up in bed states that his right lower quadrants pain feels better - Objective Vital Signs & Weight: Vital Signs (12 hours) Temp Pulse Resp BP BP BP Pulse Ox 01/30/20 15:50 98.7 F 97 18 145/70 H 92 L 01/30/20 11:29 98.7 F 104 H 18 159/87 H 94 L 01/30/20 08:37 99.7 F H 94 L 01/30/20 08:00 101.6 F H 105 H 18 161/88 H 91 L Weight Admit Weight 172 lb 2.896 oz Weight 172 lb 2.896 oz I&O: 01/29/20 01/30/20 01/31/20 06:59 06:59 06:59 Intake Total 1440 250 Output Total 1050 Balance 390 250 Result Diagrams: 01/29/20 07:43 01/29/20 07:43 Hospitalist ROS - Review of Systems Cardiovascular: denies: chest pain, palpitations, orthopnea, paroxysmal noc. dyspnea, edema, light headedness, other Gastrointestinal: denies: nausea, vomiting, abdominal pain, diarrhea, constipation, melena, hematochezia, other Genitourinary: denies: dysuria, frequency, incontinence, hematuria, retention, other - Medication Medications: Active Medications Generic Name Dose Route Start Last Admin Trade Name Freq PRN Reason Stop Dose Admin Acetaminophen 650 mg 01/26/20 21:09 01/30/20 07:44 Tylenol PO 650 mg Q4H PRN Administration Headache/Fever/Mild Pain (1-3) Hydrocodone Bitart/Acetaminophen 1 tab 01/27/20 12:03 01/30/20 01:00 [place] 5/325 PO 1 tab Q4H PRN Administration Moderate to Severe Pain (6-10) Bicalutamide 50 mg 01/30/20 09:00 01/30/20 07:38 Casodex PO 50 mg DAILY LOUANN Administration Cyanocobalamin 1,000 mcg 01/28/20 09:00 01/30/20 07:38 Vitamin B-12 PO 1,000 mcg DAILY LOUANN Administration Dexamethasone 4 mg 01/28/20 08:00 01/30/20 07:37 Decadron PO 4 mg QAM-WM LOUANN Administration Docusate Sodium 100 mg 01/29/20 09:00 01/30/20 07:38 Colace PO 100 mg BID LOUANN Administration Ferrous Sulfate 325 mg 01/29/20 08:00 01/30/20 07:37 Feosol PO 325 mg BID-WM LOUANN Administration Gabapentin 300 mg 01/27/20 15:00 01/30/20 15:37 Neurontin PO 300 mg TID LOUANN Administration Piperacillin Sod/Tazobactam 100 mls @ 200 mls/hr 01/29/20 12:00 01/30/20 12: 56 Sod 3.375 gm/ Sodium Chloride IVPB 100 mls Q6HR LOUANN Administration Lidocaine 1 patch 01/27/20 13:00 01/30/20 12:57 Lidoderm 5% Patch TD 1 patch Q24HR LOUANN Administration Miscellaneous Medication 1 each 01/28/20 01:00 01/30/20 01:04 Lidocaine Patch Removal TOP Not Given 0100 [facility] Morphine Sulfate 4 mg 01/27/20 12:03 01/28/20 10:10 Morphine SLOW IVP 4 mg Q4H PRN Administration Moderate to Severe Pain (6-10) Polyethylene Glycol 17 gm 01/28/20 09:00 01/30/20 07:39 Miralax PO 17 gm DAILY LOUANN Administration Sodium Chloride 10 ml 01/27/20 09:00 01/30/20 07:39 Flush - Normal Saline IVF 10 ml Q12HR LOUANN Administration - Exam Heart: negative: RRR, no murmur, no gallops, no rubs, normal peripheral pulses, irregular, diminshed peripheral pulses, murmur present, II/IV, III/IV Respiratory: negative: CTAB, no wheezes, no rales, no ronchi, normal chest expansion, no tachypnea, normal percussion, rales, rhonchi, tachypneic, wheezes Gastrointestinal: negative: soft, non-tender, non-distended, normal bowel sounds , no palpable masses, no hepatomegaly, no splenomegaly, no bruit, no guarding, no rigidity, tender to palpation, distended, diminished bowl sounds, voluntary guarding Hosp A/P - Plan #Pain due to malignancy including low back and hip #Metastatic prostate cancer #Symptomatic anemia due to chronic illness with status post blood transfusion 01/27/2020 I have reviewed his abdomen and pelvic CT scan, it appears to be progressions of his metastatic disease. We will consult medical oncology for further recommendation, patient may be benefit from palliative radiation therapy. Palliative care consult to help with symptomatic management as well as goals of care. I had a chance to reach out to Dr. Omer, his urologist. Recommend to check PSA level as well as testosterone level. Prognosis is poor given resistance to hormone therapy. He will see patient on Thursday if pt still in the hospital. If testosterone is significantly elevated, orchiectomy may be considered. Adjust pain regimen, monitor and adjust as needed. Labs in AM 01/27 pt still having significant amount of pain to his right hip. He is getting morphine. Bone scan to be done. will watch pt over for 24hr then discharge if stable and no iv pain meds given. 01/28 pt spiked a fever today. Ua/cxr normal. will start pt on abx. He has significant pain to his right groin area where his lymph node is inflamed and he also has significant metastatic bone lesions on his right pelvic area. 01/29 pt had a fever again on abx. will get ID to see pt. His right lower quadrant pain improved.
--- NOTE | 2020-01-30 20:09 | CON ---
DATE OF CONSULTATION: 01/30/2020 REASON FOR CONSULTATION: Fever, prostate cancer. HISTORY OF PRESENT ILLNESS: A 64-year-old, who has a history of metastatic prostate cancer, who was been managed at [facility] with Lupron injections. 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 He developed severe pain in September and was evaluated and treated at [facility] here in town. Reviewing the record there, it shows a visit on October 14, when he presented with lower back pain and lower abdominal pain, which he developed 4 days before this visit, associated with some chronic cough, pain with worsening when he ambulates and radiates to the right lower extremity. He was getting Lupron injections still, and the last one was in May. He had been on hydrocodone and ibuprofen for pain control. He had a CT of lumbar spine, which showed no fracture or subluxation. L5-S1 degenerative disease and metastatic disease to bone. The impression may be the degenerative changes were responsible for the pain, and he was released with symptomatic medication including prednisone, morphine, and Toradol given in the emergency room, and then ibuprofen, methylprednisolone (Medrol Davy), and hydrocodone for discharge planning. The latest visit at [facility] is a family medicine visit, and during this visit, which was on January 25, just a few days ago, complained of pain in the lumbar spine and sacroiliac area radiating into the right knee and right thigh, pretty much unchanged since September with high intensity of severity of 10/10. He did not have any bladder symptoms or bowel incontinence. He was actually constipated as expected. He had not had a fever then. The impression was metastatic bone disease from prostate cancer. 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 According to the patient, he was going to be released and then he demanded that they did some blood work on him and urine tests, and he went home, and they called him or sent a police later to his home to inform him that he most likely needed to be readmitted because of very low hemoglobin. The latest labs demonstrated a creatinine of 0.87 at [facility], potassium 4.2, alkaline phosphatase 144, AST 44, ALT 21, protein total 8.1. The hemoglobin was 6.2, MCV 78. Urinalysis with 1 to 2 wbc's. So, he basically decided to come here instead of going back to [facility], and he was admitted on the same day, January 25, and still with pain in the lower back and the right groin area radiating to the right lower extremity, weakness, some dyspnea. No cough. He had vomiting before, but not recently. No dysuria. No hematuria. Constipation is present, but no bleeding. No diarrhea. The exam initially showed BP 130/81, pulse 85, temperature 98 on arrival, O2 saturations were 98% on room air. The exam showed right hip tenderness. Other findings on admission included a white cell count 5.8, hemoglobin 6.4, platelets 219 with a normal differential. Sodium 134, creatinine 0.78. The AST was 46, ALT 18, alkaline phosphatase 137, albumin 4.1, globulin 3.6. PSA was 96. Folate was 6.7. B12 of 267. Urinalysis with 0 to 3 wbc's, 30 protein. COVID was not detected. Imaging; an abdomen and pelvis CT was performed, which demonstrated inflammatory changes in the right groin with lymphadenopathy, enlarged retroperitoneal and pelvic lymph nodes, extensive sclerosis and lucency throughout the visualized osseous structures. Currently, Mr. Ye is feeling a little better. He denies any headaches. No visual symptoms, sore throat, odynophagia, or dysphagia. No thoracic or cervical spine pain. No shoulder pain. No dyspnea or cough. The right lower quadrant pain is improving. The pain in the right lower extremity has improved since admission as well. He is voiding without difficulty. He is a little bit constipated. No neurological symptoms otherwise. PAST MEDICAL HISTORY: Metastatic prostate cancer, on androgen deprivation therapy at [facility], and he was basically being treated with Lupron every few months. Progression of pain, likely due to progression of metastatic prostate cancer. Newly identified anemia, which prompted the admission. PAST SURGICAL HISTORY: Negative. SOCIAL HISTORY: Quit smoking 2 months ago. He used to work in an [employer] company, but he was laid off in September. He has lost his medical insurance. FAMILY HISTORY: Noncontributory. He lives in [place] with family members. He had been taking hydrocodone and ibuprofen basically as symptomatic medication. ALLERGIES: NONE. CURRENT MEDICATIONS: Include: 1. Casodex. 2. Vitamin B12. 3. Decadron. 4. Colace. 5. Feosol. 6. Neurontin. 7. Morphine. 8. Zosyn. 9. MiraLAX. PHYSICAL EXAMINATION: VITAL SIGNS: He has had temperature elevation up to 102.2. It is now 98.7. BP 150/80, pulse 104, respirations 18, O2 saturation 94% on room air. SKIN: With no skin lesions. The patient has a peripheral IV access. He is voiding in the toilet. LYMPHATICS: No axillary or neck lymphadenopathy. He has tender right groin lymph nodes. The whole right groin is somewhat tender, not as much as before. EXTREMITIES: No joint inflammatory activity. No edema. Pulses 1+ in dorsalis pedis. Plantar responses are flexor. No clonus. Moves extremities equally. NEUROLOGIC: He is awake and oriented. Follows commands. Speech is normal. LABORATORY DATA: His white cell count is 5.5, hemoglobin 7.7, platelets 193, 50% neutrophils. Creatinine 0.78. Ferritin was 6700. LDH 1300. The PSA was markedly elevated. IMAGING STUDIES: Chest x-ray with old granulomatous disease. No lobar consolidation. Bone scan showed widespread osseous metastatic disease. ASSESSMENT: 1. Metastatic prostate cancer with bone metastases and evidence of progression over the past few months. 2. Loss of employment recently due to the effects of the epidemic, most likely associated with loss of health insurance. 3. Worsening pain secondary to metastatic prostate cancer. May have a radiculopathic involvement in the lumbosacral spine causing the pain radiating to the right lower extremity. 4. Severe anemia. 5. Fever, which has been identified on this admission. DISCUSSION: The differential diagnosis includes metastatic prostate cancer with bone marrow involvement and cytokine release with inflammatory syndrome associated with widespread prostate cancer versus superimposed infectious process. This could range from transient bacteremia, for example, Staphylococcus aureus bacteremia due to the previous use of corticosteroids by other providers with immunosuppression or other forms of bacteremia. Not yet disclosed the chronic infection, for example, Mycobacterium tuberculosis, histoplasmosis, brucellosis would be less likely. HIV infection and syphilis will have to be ruled out, but the most likely scenario here is tumor fever associated with widespread metastatic prostate cancer with bone marrow involvement. Job ID: [id number]
[2020-01-31] MEDS: Piperacillin/Tazobactam 3.375 GM in Sodium Chloride 0.9% 100 ML IVPB SCH ×3 (00:03→12:00)
[2020-01-31] MEDS: Acetaminophen 325 MG TAB PO PRN (00:04)
[2020-01-31] MEDS: Lidocaine Patch Removal 1 EACH TOP SCH (00:31)
[2020-01-31] MEDS: Ferrous Sulfate 325 MG TAB PO SCH ×2 (08:00→15:52)
[2020-01-31] MEDS: Dexamethasone 4 MG TAB PO SCH (08:04)
[2020-01-31] MEDS: Polyethylene Glycol 3350 17 GM Packet PO SCH (08:04)
[2020-01-31] MEDS: Docusate 100 MG CAP PO SCH (08:04)
[2020-01-31] MEDS: Cyanocobalamin (Vitamin B-12) 1,000 MCG TAB PO SCH (08:04)
[2020-01-31] MEDS: Bicalutamide 50 MG TAB PO SCH (08:04)
[2020-01-31] MEDS: Gabapentin 300 MG CAP PO SCH ×2 (08:04→15:52)
[2020-01-31] MEDS: HYDROcodone/Acetaminophen 5/325 mg Tablet PO PRN (08:11)
[2020-01-31] MEDS ORDERED: Saccharomyces boulardii 250 MG CAP PO SCH (09:00)
[2020-01-31] MEDS: Lidocaine 5% Patch TD SCH (12:00)
--- NOTE | 2020-01-31 14:42 | PDOC.MOPN ---
Interval History: Patient denies pain. Eating well, fevers improved. - Vital Signs Vital Signs: Vital Signs (12 hours) Temp Pulse Resp BP Pulse Ox 01/31/20 08:00 98.5 F 113 H 20 153/72 H 91 L 01/31/20 04:00 99 F Weight Admit Weight 172 lb 2.896 oz Weight 172 lb 2.896 oz - Physical Exam General: Alert, Oriented x3, No acute distress HEENT: Atraumatic, PERRLA, EOMI, Mucous membr. moist/pink Lungs: Clear to auscultation, Normal air movement Cardiovascular: Regular rate Abdomen: Normal bowel sounds, Soft, No tenderness, No hepatospenomegaly, No masses Extremities: Other (right groin pain) Neurological: Normal speech Psych/Mental Status: Mental status NL - Labs Result Diagrams: 01/29/20 07:43 01/29/20 07:43 Lab results: Laboratory Results - last 24 hr 01/30/20 16:24: Syphilis IgG/IgM Ab Nonreactive 01/30/20 16:24: Hepatitis C Antibody Non-Reactive, HIV 1&2 Antigen & Ab Non- Reactive Status: lab reviewed by me A/P - Problem (1) Prostate cancer metastatic to bone Current Visit: Yes Code(s): C61 - MALIGNANT NEOPLASM OF PROSTATE; C79.51 - SECONDARY MALIGNANT NEOPLASM OF BONE Status: Acute (2) Symptomatic anemia Current Visit: Yes Code(s): D64.9 - ANEMIA, UNSPECIFIED Status: Acute - Plan Plan: Ok to dc home from my perspective Continue casodex, pain control follow-up next week in our office.
[2020-01-31 16:38] VITALS: BP 147/84; TEMP 98.4
--- NOTE | 2020-02-01 01:13 | DIS ---
DATE OF ADMISSION: 01/28/2020 DATE OF DISCHARGE: 01/31/2020 DISCHARGE DIAGNOSES: As of the following; 1. Pain due to malignancy. 2. Metastatic prostate cancer. 3. Symptomatic anemia. 4. Fever, most likely secondary to underlying cancer. HOSPITAL COURSE: The patient is a 64-year-old male, who initially had a diagnosis of metastatic prostate cancer, was on Lupron; however, lost his insurance and has not been treated for quite some time. He came into the hospital with complaints of right lower back pain and right hip pain. He was seen by Urology and also was seen by Hematology. The patient underwent a CT of abdomen and pelvis, which indicated an inflammatory changes involving the right groin with evidence of lymphadenopathy and extensive sclerosis and lucency throughout the visualized osseous structure worrisome for progression of metastatic malignancy. The patient was made aware of this. He also underwent a bone scan, which indicated widespread osseous metastatic disease. The patient will follow up with Oncology on 02/07. He also was seen by Urology and was put on Casodex since the Lupron was significantly expensive and the patient could not afford it. Recommendation per Urology was to repeat testosterone testing with either Lupron or surgical castration of levels begin to rise significantly and recommended starting Casodex. The patient's right groin pain improved through the hospital course. He was put on some steroids and also was on some pain medications. He did spike a fever of 102 in the hospital. Blood cultures were negative. Urine was negative. Chest x-ray was negative. He was seen by Infectious Disease, who thought this was most likely due to his underlying prostate cancer. We will take him off the antibiotics. He also was anemic and was given 2 units of PRBCs. His H and H have been stable through the hospital stay. PHYSICAL EXAMINATION: VITAL SIGNS: The patient's vital signs on discharge; temperature of 98.5, , and blood pressure 153/72. GENERAL: He is awake, alert, and oriented x3. Does not appear in distress. CV: S1 and S2 present. No murmurs, rubs, or gallops. ABDOMEN: Soft and nontender. Bowel sounds are present x2. He is getting up, moving around without any shortness of breath. MEDICATIONS: On discharge, he is going to be on; 1. Casodex 50 mg daily. 2. Vitamin B12 of 1000 mcg daily. 3. Tramadol 50 mg q.6 hours p.r.n. 4. Pepcid 20 mg b.i.d. 5. Iron 325 b.i.d. 6. Gabapentin 300 mg t.i.d. 7. Lidocaine 1 patch every 24. 8. MiraLAX 17 g p.o. daily. The patient will be discharged home. He has an appointment with Oncology on the . Job ID: [id number]
== END 2020-01-31 17:15 | disposition home or self-care (01) | DRG 723 ==
LOC: ERS 17:33 → ONC 20:51 → OBSVTOIN 01-28 13:56
PROVIDERS: ADMIT Internal Medicine; ATTEND Internal Medicine
PROC: 30233N1 Transfusion of Nonautologous Red Blood Cells into Peripheral Vein, Percutaneous Approach (ICD-10-PCS; principal; 2020-01-26)
DX: C61 Malignant neoplasm of prostate (principal); C79.51 Secondary malignant neoplasm of bone; Z20.828 Contact with and (suspected) exposure to other viral communicable diseases; D63.0 Anemia in neoplastic disease; Z87.891 Personal history of nicotine dependence
CPT/HCPCS: 36415; 36430; 71045; 74177; 78306; 80048; 80053; 81003; 81015; 82274; 82607; 82728; 82746; 83540; 83550; 83615; 84270; 84403; 85025; 85046; 86780; 86803; 86850; 86900; 86901; 87040; 87389; 96374; 96375; 96376; A9503; G0103; J2270; J2405; J2543; J3490; J8540; P9016; Q9967; U0002

== ENCOUNTER 2020-02-16 12:17 | Inpatient (IN) | payer OTHER, SELFPAY ==
--- NOTE | 2020-02-16 12:58 | RAD ---
XR Chest 1 View Portable HISTORY: Cough, stage IV prostate cancer COMPARISON: 01/29/2020 FINDINGS: The heart size is normal. Evidence of old granulomatous disease is again seen. The lungs ar e well expanded without focal areas of consolidation, pneumothorax or pleural effusions. IMPRESSION: No radiographic evidence of acute cardiopulmonary process.
[2020-02-16 13:02] LABS: Hemoglobin 8.6 g/dL (14.0-18.0); Mean Corpuscular HGB CONC 30.9 g/dL (32.0-36.0); Mean Corpuscular Hemoglobin 25.1 pg (27.0-31.0); Mean Corpuscular Volume 81.3 fL (78.0-98.0); Platelet Count 199 thou/uL (130-400); RBC Distribution Width 23.9 % (11.5-14.5); Red Blood Cell (RBC) Count 3.42 mill/uL (4.70-6.10); White Blood Cell (WBC) Count 7.5 thou/uL (4.8-10.8)
[2020-02-16 13:24] LABS: Anisocytosis MODERATE=16-30 cells (100X) (0-5/hpf); Band 26 % (5-11); Glucose 112 mg/dL (80-115); Hypochromia SLIGHT = 6-15 cells (100X) (0-5/hpf); Lymphocytes 28 % (21-51); MDiff Complete? YES; Metamyelocyte 1 % (0-0); Monocytes 13 % (0-10); Myelocyte 1 % (0-0); Neutrophil 23 % (42-75); Nucleated RBC 4 % (0); Platelet Morphology Comment Appears Adequate; Polychromasia MODERATE = 3-4 cells (100X) (0-2/hpf); Reactive Lymphocytes 8 % (0-10); Schistocytes SLIGHT = 2-5 cells (100X) (0-1/hpf); Tear Drops SLIGHT = 2-5 cells (100X) (0-1/hpf)
[2020-02-16 13:26] LABS: ALT (SGPT) 22 U/L (8-55); AST (SGOT) 29 U/L (5-34); Alkaline Phosphatase 230 U/L (40-110); Anion Gap 19 mmol/L (10-20); BUN (Urea Nitrogen) 13 mg/dL (8.4-25.7); Bilirubin, Total 0.5 mg/dL (0.2-1.2); Calc. Creatinine Clearance 0 mL/min (70-130); Carbon Dioxide 20 mmol/L (23-31); Chloride 101 mmol/L (98-107); Estimated GFR-MDRD Greater than 90; Globulin 4.5 g/dL (2.4-3.5); Potassium 4.6 mmol/L (3.5-5.1); Protein, Total 8.5 g/dL (5.8-8.1); Sodium 135 mmol/L (136-145)
[2020-02-16] MEDS ORDERED: Azithromycin 500 MG VIAL ONE (13:39)
[2020-02-16] MEDS ORDERED: cefTRIAXone\\ROCEPHIN 2 GM VIAL ONE (13:39)
[2020-02-16 13:54] LABS: SARS-CoV-2 NAA Rapid Test Not Detected (NotDetected)
[2020-02-16 15:40] LABS: Bilirubin Negative (Negative); Blood, Urine Negative (Negative); Clarity Clear (Clear); Glucose, Urine (Dipstick) Normal (Negative); Ketone, Urine Negative (Negative); Leukocyte Negative Leu/uL (Negative); Nitrite Negative (Negative); Protein, Urine (Dipstick) 20 mg/dL (Neg-Trace); Specific Gravity, Urine 1.015 (1.002-1.036); Urobilinogen Normal mg/dL (Less than 2); pH, Urine 5.5 (5.0-9.0)
[2020-02-16] MEDS ORDERED: Zolpidem Tartrate 5 MG TAB PO PRN (17:21)
[2020-02-16] MEDS ORDERED: Ondansetron ODT 4 MG TAB PO PRN (17:21)
[2020-02-16] MEDS ORDERED: HYDROcodone/Acetaminophen 10/325 mg Tablet PO PRN (17:21)
[2020-02-16 17:22] VITALS: BMI 22.7
[2020-02-16] MEDS ORDERED: Ondansetron PF 4 MG/2 ML Vial IVP PRN (17:30)
[2020-02-16] MEDS ORDERED: Ondansetron ODT 4 MG TAB SL PRN (17:30)
[2020-02-16] MEDS ORDERED: Acetaminophen 325 MG TAB PO PRN (17:30)
[2020-02-16] MEDS: Sodium Chloride 0.9% 1,000 ML IV SCH (17:56)
[2020-02-16] MEDS: Acetaminophen 325 MG TAB PO PRN (17:56)
--- NOTE | 2020-02-16 18:12 | HP ---
PRIMARY CARE PHYSICIAN: No PCP. HISTORY: Referred to the [facility] by [facility] for probable pneumonia. The patient gives a history of diffuse chest pains mostly pleuritic. Over the past 4 days, he has had a cough, shortness of breath, and 102 fever. He has had no documented chills and sweats. In the emergency room, his temperature was 100.2. PAST MEDICAL HISTORY: Prostate cancer, which was metastatic and previously been treated with Lupron injections. He has no other chronic medical problems. PAST SURGICAL HISTORY: He has no past surgical history. ALLERGIES: HE HAS NO KNOWN DRUG ALLERGIES. MEDICATIONS: He was recently in the hospital, discharged on the following medicines; 1. Casodex 50 mg a day. 2. Vitamin B12 daily. 3. Tramadol 50 mg every 6 hours. 4. Pepcid 20 mg twice a day. 5. Iron 325 mg a day. 6. Gabapentin 300 mg three times a day. 7. MiraLAX 17 g in water daily. FAMILY HISTORY: Not pertinent to his current problems. SOCIAL HISTORY: Single. He desires to be a DNR, we discussed that at length. He names his sister, Odalis Benz, as surrogate decision maker when he is incapacitated. He does not have a living will. He was very ambivalent about me discussing this with Odalis Benz. Does not smoke, drink, or use illicit drugs. REVIEW OF SYSTEMS: CONSTITUTIONAL: He has had a slight headache with this present illness. No dizziness or fainting. EYES: No double vision, flashing light, or other visual defect. EAR, NOSE, AND THROAT: No ear pain or drainage. No nasal bleeding. No trouble swallowing. CARDIAC: No chest pain, orthopnea, or paroxysmal nocturnal dyspnea. RESPIRATIONS: See present illness. GASTROINTESTINAL: He has had some nausea and vomiting and some diffuse abdominal pain with present illness. His bowels are sluggish. He has noted no hematemesis or hematochezia. GENITOURINARY: He says his urine is dark. He does not think he drinks enough fluids. As noted, no pain on urination. No blood in his urine. MUSCULOSKELETAL: He has had some pain in his right leg, which has been going on for a while. No swelling in his legs. NEUROLOGICAL: No history of stroke, seizures, or focal weakness. PSYCHIATRIC: He has never been treated for anxiety, depression, however, we will discuss in the DNR status, he did have tears in his eyes. SKIN: No bruising, bleeding, or rash. HEME/LYMPH: No tender or swollen lymph nodes in axilla, inguinal, or cervical area. PHYSICAL EXAMINATION: GENERAL: He is alert, pleasant, cooperative gentleman, in obvious discomfort. VITAL SIGNS: Blood pressure 131/75, pulse 97, respirations 20, temperature 100.2, and room air saturations are good. HEENT: Examination of his head, eyes, ears, nose, and throat reveal pupils are equal, round, and reactive to light. Extraocular movements are intact. Sclerae are white. Tympanic membranes clear. Nose is clear. Mouth is dry. NECK: No jugular venous distention, adenopathy, or thyromegaly. CHEST: Clear to auscultation and percussion. HEART: Regular rate and rhythm. First and second heart sounds are clear. There are no murmurs or gallops appreciated. ABDOMEN: Soft. Bowel sounds are normal. There is no hepatosplenomegaly. No mass. No rebound. No bruits. EXTREMITIES: Reveal no cyanosis, clubbing, or edema. PULSES: Carotid, radial, femoral, and dorsalis pedis pulses intact. SKIN: Warm and dry. HEME/LYMPH: No tender or swollen lymph nodes palpable in the neck or axilla. NEUROLOGICAL: Moves all extremities. Cranial nerves II through XII are intact. DIAGNOSTIC DATA: EKG, regular sinus rhythm, left axis deviation, no acute ST-T abnormality reviewed by me. IMAGING: Chest x-ray, no cardiomegaly, CHF, or definite infiltrates, personally reviewed. LABORATORY DATA: COVID negative. White count 7.5, hemoglobin 8.6, platelet count 199,000, neutrophils 23, bands 26, monocytes 13, metamyelocytes 1, lymphocytes 28. Comprehensive metabolic profile reveals sodium 135, potassium 4.6, carbon dioxide 20, BUN 13, creatinine 0.95, and blood sugar 112. Lactic acid 1.9. Liver function tests normal except for alkaline phosphatase of 230. In review of previous admission, he had a nuclear medicine bone scan. Widespread osseous metastatic disease was diagnosed. ADMITTING DIAGNOSES: 1. Sepsis. 2. Chest pain. 3. Prostate cancer, stage IV with bony metastases. 4. Anemia. PLAN: Blood and urine cultures have been drawn. Broad-spectrum antibiotics with Levaquin and ceftriaxone will be administered. Analgesics will be administered orally if possible, perhaps will have to be parenteral. Antinausea medicine has been ordered IV. IV fluids have been ordered. DISCUSSION: There is no obvious etiology at the present for this patient's fever and widespread changes on his white cell count. This could clearly be an infective process. It could also be secondary to his metastatic disease. It will take at least 2 overnights to determine whether cultures will be positive and sensitivities are available. He will be admitted. Job ID: [id number]
[2020-02-16] MEDS: Famotidine/PF 20 mg/2ml Vial SLOW IVP SCH (20:48)
[2020-02-17] MEDS: Acetaminophen 325 MG TAB PO PRN
[2020-02-17] MEDS: Sodium Chloride 0.9% 1,000 ML IV SCH ×2 (03:10→15:21)
[2020-02-17] MEDS: Famotidine/PF 20 mg/2ml Vial SLOW IVP SCH (08:05)
[2020-02-17] MEDS ORDERED: Enoxaparin Sodium 40 MG/0.4 ML SYRINGE SC SCH (09:00)
[2020-02-17] MEDS ORDERED: cefTRIAXone\\ROCEPHIN 1 GM in Sodium Chloride 0.9% 100 ML IVPB SCH (09:00)
[2020-02-17 10:00] LABS: Legionella Urinary Ag Negative (Negative); Strep pneumo Urine Ag NEGATIVE (NEGATIVE)
--- NOTE | 2020-02-17 10:24 | RAD ---
EXAM: XR Chest Pa Lat STANDARD PROVIDED CLINICAL HISTORY: Evidence for pneumonia COMPARISON: 02/16/2020 FINDINGS: Cardiac and mediastinal silhouette is within normal limits. Small bilateral pleural effusions with bi basilar subsegmental atelectasis. No evidence for pneumothorax. IMPRESSION: Bilateral pleural effusions with adjacent probable subsegmental atelectasis.
[2020-02-17 11:20] VITALS: BP 149/80; TEMP 98.3
[2020-02-17] MEDS ORDERED: traMADol HCl 50 MG TAB PO PRN (15:28)
[2020-02-17] MEDS ORDERED: traMADol HCl 50 MG TAB PO SCH (15:30)
--- NOTE | 2020-02-18 02:28 | DIS ---
DATE OF ADMISSION: 02/16/2020 DATE OF DISCHARGE: 02/17/2020 HOSPITAL COURSE: Mr. Ye is a 64-year-old male with medical history of stage IV prostate cancer with diffuse metastasis to the bones, who presented with chronic diffuse pain including pleuritic pain. He was diagnosed with diffuse pain due to bone metastasis. Of note, the patient received pain medications, but the pain medication, most specifically gabapentin, caused him nausea, so he stopped the pain medication. Prior to discharge, the patient was educated regarding taking his tramadol tolerated gabapentin. At the time of discharge, his pain was improved, he was hemodynamically stable, and had no additional complaints. PHYSICAL EXAMINATION: VITAL SIGNS: Blood pressure 149/80, temperature 98.3 (of note, the patient had a low-grade fever most likely because of the metastatic cancer), pulse 91, respiratory rate 18, and oxygen saturation 95% on room air. GENERAL: Sitting comfortably on the bed, in no apparent distress. Awake and alert. HEENT: Normocephalic, atraumatic. CARDIAC: Regular rate and rhythm. No murmurs, gallops, or rubs. Reproducible anterior thorax pain, diffuse. LUNGS: Clear to auscultation bilaterally. No wheezing, rales, or rhonchi. ABDOMEN: Soft, nontender, nondistended. Normal bowel sounds. EXTREMITIES: Left shoulder and subscapular tenderness consistent with metastasis location. PSYCHIATRIC: Proper mood, flat affect. Alert and oriented x3. MEDICATION LIST: New medications: No new medications. Modified medications: No modified medications. Discontinued medications: No discontinued medications. Continued medications: 1. Casodex 50 mg. 2. Vitamin B12. 3. Tramadol 50 mg q.6 hours p.r.n. pain. 4. Pepcid 20 mg p.o. b.i.d. 5. Iron 325 mg daily. 6. Gabapentin 300 mg p.o. t.i.d. 7. MiraLAX g p.o. daily. Job ID: [id number]
--- NOTE | 2020-02-20 13:24 | PQF ---
CLINICAL DOCUMENTATION CLARIFICATION FORM: Dear :Bert Veliz MD Date / Time: 02/20/2020 Please exercise your independent, professional judgment in responding to the clarification form. Clinical indicators are provided on the bottom of this form for your review Please check appropriate box(es) to clarify if the following diagnosis has been ruled in our ruled out: [ ] Ruled in Sepsis [ ] Continue to treat [ ] Resolved [ x ] Ruled out Sepsis [ ] Improving [ ] Cannot rule out diagnosis [ ] Other diagnosis (Please specify if any) [ ] Unable to determine Physician Signature: Date/Time: For continuity of documentation, please document condition throughout progress notes and discharge summary. Thank You. To be completed by CDI/Coding staff for physician review: Present Clinical Indicators - Signs / Symptoms / Labs Results and Location in Medical Record [ x] I suspect his sepsis is coming from a pneumonia ED provider report on 02/15 [ x ] Final diagnosis: Sepsis ED provider report on 02/15 [ x] Broad spectrum antibiotics with levaquin and ceftriaxone will be administered H&P on 02/15 [ x] Sepsis H&P on 02/15 [ x] Temp-100.8 F Vitals on 02/15 Present Risk Factors Results and Location in Medical Record [ x] Aged person: 64 yrs ED provider report on 02/15 [ ] [ ] [ ] Present Treatments Results and Location in Medical Record [ x ] Rocephin 2gm Medication on 02/15 [x ] Azithromycin 500mg Medication on 02/15 [ ] [ ] CDS/Cigar Tobacco Rehandler Signature: AAS Phone #: Date/Time: 02/20/2020 This is a permanent part of the Medical Record [facility]
--- NOTE | 2020-02-20 23:15 | PQF ---
CLINICAL DOCUMENTATION CLARIFICATION FORM: Dear :Bert Veliz MD Date / Time: 02/20/2020 Please exercise your independent, professional judgment in responding to the clarification form. Clinical indicators are provided on the bottom of this form for your review Please check appropriate box(es) to clarify if the following diagnosis has been ruled in our ruled out: [ ] Ruled in Pneumonia [ ] Continue to treat [ ] Resolved [ x] Ruled out Pneumonia [ ] Improving [ ] Cannot rule out diagnosis [ ] Other diagnosis (Please specify if any) [ ] Unable to determine Physician Signature: Date/Time: For continuity of documentation, please document condition throughout progress notes and discharge summary. Thank You. To be completed by CDI/Coding staff for physician review: Present Clinical Indicators - Signs / Symptoms / Labs Results and Location in Medical Record [ x] I suspect his sepsis is coming from a pneumonia ED provider report on 02/15 [ x ] Broad spectrum antibiotics with levaquin and ceftriaxone will be administered H&P on 02/15 [ x] Temp-100.8 F Vitals on 02/15 [ x] Referred to the [facility] service by [facility] ED for probable pneumonia H&P on 02/15 Present Risk Factors Results and Location in Medical Record [ x] Aged persons 64 yrs ED provider report on 02/15 [ x ] Sepsis H&P on 02/15 [ ] [ ] Present Treatments Results and Location in Medical Record [ x ] Rocephin 2gm Medication on 02/15 [x ] Azithromycin Medication on 02/15 [ ] [ ] CDS/Multilith Operator Signature: AAS Phone #: Date/Time: 02/20/2020 This is a permanent part of the Medical Record [facility]
== END 2020-02-17 16:52 | disposition home or self-care (01) | DRG 948 ==
LOC: ERS 12:17 → T4-A 15:24
PROVIDERS: ADMIT Internal Medicine; ATTEND Internal Medicine
DX: G89.3 Neoplasm related pain (acute) (chronic) (principal); C79.51 Secondary malignant neoplasm of bone; C61 Malignant neoplasm of prostate; Z20.828 Contact with and (suspected) exposure to other viral communicable diseases; R07.81 Pleurodynia; Z79.899 Other long term (current) drug therapy
CPT/HCPCS: 36415; 71045; 71046; 80053; 81003; 83605; 84145; 85025; 87040; 87086; 87449; 87804; 87899; 93005; 96365; 96367; J0456; J0696; J1650; J1956; J3490; S0028; U0002

== ENCOUNTER 2020-03-10 12:58 | Observation (INO) | payer OTHER ==
[~2020-03-10 12:58] MED LIST changes: -Iopamidol 370 76% 100 ML VIAL ONE; +Iopamidol-370 76% 500 ML 1 ML ONE
[2020-03-10] MEDS ORDERED: Acetaminophen 500 MG TAB ONE (13:30)
[2020-03-10] MEDS ORDERED: Morphine 4 MG/ML VIAL ONE (13:30)
[2020-03-10] MEDS ORDERED: Ondansetron PF 4 MG/2 ML Vial ONE (13:31)
[2020-03-10] MEDS ORDERED: Vancomycin 1 GM/200 ML BAG ONE (13:31)
[2020-03-10 13:50] LABS: #Lymphocytes 1.8 thou/uL (1.20-3.40); #Monocytes 1.1 thou/uL (0.11-0.59); #Neutrophils 5.2 thou/uL (1.40-6.50); %Basophils 0.2 % (0.0-1.0); %Eosinophils 0.3 % (0.0-10.0); %Lymphocytes 21.7 % (21.0-51.0); %Monocytes 13.9 % (0.0-10.0); %Neutrophils 63.8 % (42.0-75.0); Hemoglobin 6.3 g/dL (14.0-18.0); Mean Corpuscular HGB CONC 31.8 g/dL (32.0-36.0); Mean Corpuscular Hemoglobin 25.5 pg (27.0-31.0); Mean Corpuscular Volume 80.2 fL (78.0-98.0); Mean Platelet Volume 11.5 fL (7.4-10.4); Platelet Count 194 thou/uL (130-400); RBC Distribution Width 22.6 % (11.5-14.5); Red Blood Cell (RBC) Count 2.46 mill/uL (4.70-6.10); White Blood Cell (WBC) Count 8.1 thou/uL (4.8-10.8)
[2020-03-10 13:58] LABS: ALT (SGPT) 56 U/L (8-55); AST (SGOT) 48 U/L (5-34); Albumin 3.5 g/dL (3.4-4.8); Alkaline Phosphatase 276 U/L (40-110); Anion Gap 18 mmol/L (10-20); BUN (Urea Nitrogen) 19 mg/dL (8.4-25.7); Bilirubin, Total 0.9 mg/dL (0.2-1.2); Calc. Creatinine Clearance 0 mL/min (70-130); Calcium 9.2 mg/dL (7.8-10.44); Carbon Dioxide 20 mmol/L (23-31); Chloride 100 mmol/L (98-107); Estimated GFR-MDRD Greater than 90; Globulin 4.2 g/dL (2.4-3.5); Glucose 134 mg/dL (80-115); Lipase 7 U/L (8-78); Potassium 4.3 mmol/L (3.5-5.1); Protein, Total 7.7 g/dL (5.8-8.1); Sodium 134 mmol/L (136-145)
--- NOTE | 2020-03-10 14:07 | RAD ---
PORTABLE CHEST: PROVIDED CLINICAL HISTORY: Fever. FINDINGS: Comparison 02/16/20. Cardiac and mediastinal silhouette is unchanged in appearance. There is persistent blunting of each costophrenic angle with patchy bibasilar air space disease presumably reflecting subsegmental atelect asis. IMPRESSION: Findings suggesting bilateral pleural fluid and adjacent atelectasis and/or infiltrate. POS: GLADYS
[2020-03-10] MEDS ORDERED: Piperacillin/Tazobactam 4.5 GM VIAL ONE (14:54)
--- NOTE | 2020-03-10 15:18 | CT ---
CT ABDOMEN AND PELVIS WITH IV CONTRAST: 03/10/20 INDICATIONS: Abdominal pain. Comparison made to recent CT abdomen and pelvis 01/26/20. FINDINGS: Images through the lung bases show tiny bilateral effusions, slightly larger than on the prior study. Mild right basilar atelectasis or infiltrate. The liver, and spleen unremarkable. There is mild hepatomegaly. Liver measurement craniocaudal record ed at 20 cm. Pancreas unremarkable. Adrenal glands normal. Kidneys unremarkable. The left renal cyst from the inferior pole is stable. No hydronephrosis. There is also a stable cyst from the superior right kidney. Small bowel loops normal caliber. Appendix is normal in appearance. Colon unremarkable. Images through pelvis show unremarkable urinary bladder and prostate. Aorta shows atherosclerotic tamra nge and mild ectasia. Hazy mesenteric changes appear similar to the prior exam. Minimal amount of free fluid in the deep pe lvis. Osseous structures again show diffuse mottled opacification of all the visualized osseous structures suggesting diffuse osseous metastatic disease. Degenerative changes at L5-S1. Anterolisthesis and pos terior spondylolysis at this level. IMPRESSION: 1. Small right pleural effusion with right basilar atelectasis or infiltrate. 2. Hepatomegaly. 3. Tiny amount of free fluid in the deep pelvis. 4. No acute intra-abdominal process identified. 5. Diffuse mottled osseous density suggesting diffuse osseous metastasis. POS: AGW
[2020-03-10 16:01] LABS: Bacteria/HPF None Seen HPF (None Seen); Bilirubin Negative (Negative); Blood, Urine Negative (Negative); Clarity Clear (Clear); Glucose, Urine (Dipstick) Normal (Negative); Ketone, Urine Negative (Negative); Leukocyte Negative Leu/uL (Negative); Nitrite Negative (Negative); Protein, Urine (Dipstick) 30 mg/dL (Neg-Trace); RBC/HPF 0-3 HPF (0-3); Squamous Epithelial 0-3 HPF (0-3); Urobilinogen Normal mg/dL (Less than 2); WBC/HPF 0-3 HPF (0-3); pH, Urine 5.5 (5.0-9.0)
[2020-03-10 16:03] LABS: Specific Gravity, Urine 1.052 (1.002-1.036)
[2020-03-10] MEDS ORDERED: Ondansetron PF 4 MG/2 ML Vial IVP PRN (17:46)
[2020-03-10] MEDS ORDERED: Senokot S 8.6-50 MG TAB PO PRN (18:00)
--- NOTE | 2020-03-10 18:29 | HP ---
CHIEF COMPLAINT: Abdominal pain. HISTORY OF PRESENT ILLNESS: The patient is a 64-year-old male, with past medical history of stage IV prostate cancer with metastasis to the bones, who had been on chemotherapy under the care of Dr. Armendariz. The patient was recently discharged from our facility after being admitted for sepsis and possible pneumonia. The patient presented to the hospital today with vague complaints. He was complaining of lower abdominal pain and generalized fatigue. He is also complaining shortness of breath with minimal exertion and dry cough. In the ER, the patient's vital signs were within normal limits. Chest x-ray revealed some infiltrate/atelectasis at the right lung base with some effusion. The patient was also found to be anemic with microcytic hypochromic anemia that was also noted during his prior admission in January. REVIEW OF SYSTEMS: Negative, except as noted in HPI. PAST MEDICAL HISTORY: As noted above. PAST SURGICAL HISTORY: No past surgical history. ALLERGIES: NO KNOWN DRUG ALLERGIES. FAMILY HISTORY: Noncontributory to his current presentation. SOCIAL HISTORY: The patient lives with his family. He does not smoke, drink, or use illicit drugs. PHYSICAL EXAMINATION: GENERAL: The patient is ill appearing, alert and oriented x3. HEENT: Head is normocephalic and atraumatic. Extraocular muscles are intact. NECK: Supple. CHEST: Clear to auscultation bilaterally with the exception of decreased breath sounds of the right side at the base. ABDOMEN: Soft and tender diffusely. NEUROLOGICAL EXAMINATION: Unremarkable. LABORATORY DATA: Hemoglobin level 6.3 and hematocrit 19.8. His LFTs are slightly elevated with AST 48, ALT 56, and alkaline phosphatase is 276. ASSESSMENT: 1. Microcytic hypochromic anemia, likely due to iron deficiency. 2. Possible right lower lobe pneumonia. 3. Metastatic prostate cancer. Plan: The patient will be admitted to the hospital.He is currently receiving 2 units of packed RBCs. We will check iron studies in the morning. We will initiate levofloxacin and Augmentin for possible right lower lobe pneumonia. We will also start gentle hydration with normal saline at 75 mL/h. [place] for pain and Senokot as needed for constipation. Start Lovenox for DVT prophylaxis. Job ID: [id number] [facility]
[2020-03-10 20:40] VITALS: BMI 21.4
[2020-03-10] MEDS: Amoxicillin/Potassium Clav 875 MG TAB PO SCH (21:07)
[2020-03-10] MEDS: Sodium Chloride 0.9% 1,000 ML IV SCH (21:08)
[2020-03-10] MEDS: HYDROcodone/Acetaminophen 7.5/325 mg Tablet PO PRN (21:09)
[2020-03-10 23:30] LABS: Hemoglobin 6.9 g/dL (14.0-18.0)
[2020-03-11] MEDS: HYDROcodone/Acetaminophen 7.5/325 mg Tablet PO PRN ×2 (00:50→05:13)
[2020-03-11] MEDS ORDERED: Acetaminophen 500 MG TAB PO PRN (05:19)
[2020-03-11 05:25] LABS: Anion Gap 17 mmol/L (10-20); BUN (Urea Nitrogen) 15 mg/dL (8.4-25.7); Calc. Creatinine Clearance 90 mL/min (70-130); Calcium 8.9 mg/dL (7.8-10.44); Carbon Dioxide 18 mmol/L (23-31); Chloride 102 mmol/L (98-107); Estimated GFR-MDRD Greater than 90; Glucose 82 mg/dL (80-115); Iron 24 ug/dL (65-175); Iron Binding Capacity, Total 121 mcg/dL (261-462); Potassium 5.1 mmol/L (3.5-5.1); Sodium 132 mmol/L (136-145)
[2020-03-11 06:16] LABS: Band 13 % (5-11); Elliptocytes SLIGHT = 2-5 cells (100X) (0-1/hpf); Hemoglobin 7.8 g/dL (14.0-18.0); Hypochromia SLIGHT = 6-15 cells (100X) (0-5/hpf); Lymphocytes 25 % (21-51); MDiff Complete? YES; Mean Corpuscular Hemoglobin 26.4 pg (27.0-31.0); Mean Corpuscular Volume 85.2 fL (78.0-98.0); Mean Platelet Volume 11.3 fL (7.4-10.4); Metamyelocyte 10 % (0-0); Monocytes 7 % (0-10); Myelocyte 2 % (0-0); Neutrophil 43 % (42-75); Nucleated RBC 1 % (0); Platelet Count 164 thou/uL (130-400); Platelet Morphology Comment Appears Adequate; RBC Distribution Width 19.9 % (11.5-14.5); Red Blood Cell (RBC) Count 2.94 mill/uL (4.70-6.10); Target Cells SLIGHT = 2-5 cells (100X) (0-1/hpf); White Blood Cell (WBC) Count 8.2 thou/uL (4.8-10.8)
[2020-03-11] MEDS: Amoxicillin/Potassium Clav 875 MG TAB PO SCH (08:35)
[2020-03-11] MEDS ORDERED: FLU VACC QS2020-21(6MOS UP)/PF 60 MCG/0.5 ML SYRINGE IM ONE (09:00)
[2020-03-11] MEDS ORDERED: Enoxaparin Sodium 40 MG/0.4 ML SYRINGE SC SCH (09:00)
[2020-03-11 12:40] LABS: SARS-CoV-2 MS2 Positive; SARS-CoV-2 N Gene Negative; SARS-CoV-2 S Gene Negative; SARS-CoV-2 by NAA Not Detected (NotDetected); SARS-CoV-2 orf1ab Negative
[2020-03-11] MEDS: Sodium Chloride 0.9% 1,000 ML IV SCH (12:48)
[2020-03-11 15:06] VITALS: BP 120/56; TEMP 97.6
--- NOTE | 2020-03-11 23:33 | DIS ---
DATE OF ADMISSION: 03/10/2020 DATE OF DISCHARGE: 03/11/2020 DISCHARGE DIAGNOSES: 1. Microcytic hypochromic anemia due to anemia of chronic disease. 2. Right lower lobe pneumonia. 3. Metastatic prostate cancer. DISCHARGE MEDICATIONS: 1. Augmentin 875 mg orally twice daily for 7 days. 2. Levaquin 750 mg orally daily for 7 days. The rest of the home medications are unchanged. HISTORY OF PRESENT ILLNESS AND HOSPITAL COURSE: The patient is a 64-year-old male with past medical history of stage IV prostate cancer with metastasis to the bone, who had been on chemotherapy under the care of Dr. Armendariz. The patient was recently discharged from our facility with sepsis due to pneumonia. He returned to the ER today with complaints of fatigue and generalized weakness. He was found to be short of breath and x-ray revealed right lower lobe pneumonia. The patient was admitted to the hospital and started on IV antibiotics. He was also anemic with microcytic hypochromic anemia. He received 2 units of packed RBCs, which led to improvement in his symptoms. Iron studies were consistent with anemia of chronic disease. On the second day of hospital stay, the patient was saturating well on room air. He will be discharged on antibiotics as noted above. Job ID: [id number]
== END 2020-03-11 15:10 | disposition home or self-care (01) ==
LOC: ERS 12:58 → 2NO 17:07
PROVIDERS: ADMIT Family Medicine; ATTEND Family Medicine
DX: J18.9 Pneumonia, unspecified organism (principal); C61 Malignant neoplasm of prostate; C79.51 Secondary malignant neoplasm of bone; D63.8 Anemia in other chronic diseases classified elsewhere; D50.9 Iron deficiency anemia, unspecified; J90 Pleural effusion, not elsewhere classified; R16.0 Hepatomegaly, not elsewhere classified; Z79.899 Other long term (current) drug therapy; Z20.828 Contact with and (suspected) exposure to other viral communicable diseases
CPT/HCPCS: 36415; 36430; 71045; 74177; 80048; 80053; 81003; 81015; 82274; 82728; 83540; 83550; 83605; 83690; 84484; 85025; 86850; 86900; 86901; 87040; 87086; 87635; 90471; 90662; 93005; 96372; G0008; G0378; J1650; J2270; J2405; J2543; J3370; P9016; Q9967; U0003

== ENCOUNTER 2020-03-27 08:26 | Day surgery (SDC) | payer OTHER ==
[2020-03-27] MEDS ORDERED: Acetaminophen 500 MG TAB PO SCH (09:00)
[2020-03-27] MEDS ORDERED: diphenhydrAMINE 25 MG CAP PO SCH (09:00)
[2020-03-27 14:42] VITALS: TEMP 99.4
[2020-03-27 14:52] VITALS: BP 138/82
== END 2020-03-27 14:52 | disposition home or self-care (01) ==
LOC: ONC/OP 08:26
PROVIDERS: ATTEND Internal Medicine Hematology & Oncology
PROC: 30233N1 Transfusion of Nonautologous Red Blood Cells into Peripheral Vein, Percutaneous Approach (ICD-10-PCS; principal; 2020-03-27)
DX: D64.9 Anemia, unspecified (principal); D69.6 Thrombocytopenia, unspecified
CPT/HCPCS: 36430; 86850; 86900; 86901; P9016; Q0163